=== PATIENT | male | born 1985 | race American Indian/Alaskan Native ===

== ENCOUNTER 2019-09-11 19:14 | Emergency (ER) | payer MEDICAID ==
[2019-09-11 19:30] VITALS: BP 132/82
[2019-09-11 19:54] LABS: Hematocrit 29.9 % (35.5-45.6); Hemoglobin 9.5 gm/dl (11.8-15.2); Mean Corpuscular HGB Conc 32 % (32-34); Mean Corpuscular Volume 77 fl (84-94); Platelet Count 290 K/mm3 (140-440); Red Blood Count 3.88 M/mm3 (3.65-5.03)
[2019-09-11 20:00] LABS: Red Cell Distribution Width 23.1 % (13.2-15.2)
[2019-09-11 20:18] LABS: Alanine Aminotransferase 14 units/L (7-56); Albumin 4.4 g/dL (3.9-5); BUN/Creatinine Ratio 10; Blood Urea Nitrogen 10 mg/dL (9-20); Hemolysis Index 10
--- NOTE | 2019-09-11 20:22 | Emergency Department Report ---
<FRANCI REARDON CRYSTALOBED - Last Filed: 09/11/19 20:56> ED Abdominal Pain HPI - General Chief Complaint: Abdominal Pain Stated Complaint: POSS FOOD POISON Time Seen by Provider: 09/11/19 19:49 Source: patient Mode of arrival: Ambulatory Limitations: No Limitations - History of Present Illness Initial Comments: This is a 34-year-old -[place] male who presents to the emergency room with nausea, vomiting, and epigastric pain since 1529 today. Patient on its bedside and states patient started vomiting when he arrived home from school. She think he possibly ate something that upset his stomach. She is given Pepto-Bismol. Denies diarrhea, fever, chills, chest pain, shortness of breath, dizziness, or headache. -: This afternoon Time: 15:30 Severity scale (0 -10): 0 Consistency: intermittent Improves With: nothing Worsens With: eating Context: possible food poisoning Associated Symptoms: denies other symptoms - Related Data Previous Rx's Medication Instructions Recorded Last Taken Type Ibuprofen [Motrin] 600 mg PO Q8H PRN #60 tablet 04/18/15 Unknown Rx Polyethylene Glycol 3350 [Miralax 17 gm PO DAILY #1 bottle 04/18/15 Unknown Rx 3350] raNITIdine HCl [Zantac 150 MG TAB] 150 mg PO QDAY #30 tablet 10/13/18 Unknown Rx Ondansetron [Zofran Odt] 4 mg PO Q8HR PRN #15 tab.rapdis 09/11/19 Unknown Rx Allergies Allergy/AdvReac Type Severity Reaction Status Date / Time No Known Allergies Allergy Verified 10/13/18 15:36 ED Review of Systems Constitutional: denies: chills, fever Respiratory: denies: cough, shortness of breath, wheezing Cardiovascular: denies: chest pain, palpitations Gastrointestinal: nausea, vomiting. denies: abdominal pain, diarrhea Genitourinary: denies: urgency, dysuria Skin: denies: rash, lesions Neurological: denies: headache, weakness, paresthesias Psychiatric: denies: anxiety, depression ED Past Medical Hx - Past Medical History Previous Medical History?: Yes Additional medical history: heart murmur/ MR - Surgical History Past Surgical History?: No - Social History Smoking Status: Never Smoker Substance Use Type: None - Medications Home Medications: Home Medications Medication Instructions Recorded Confirmed Last Taken Type Ibuprofen [Motrin] 600 mg PO Q8H PRN #60 tablet 04/18/15 Unknown Rx Polyethylene Glycol 3350 [Miralax 17 gm PO DAILY #1 bottle 04/18/15 Unknown Rx 3350] raNITIdine HCl [Zantac 150 MG TAB] 150 mg PO QDAY #30 tablet 10/13/18 Unknown Rx Ondansetron [Zofran Odt] 4 mg PO Q8HR PRN #15 tab.rapdis 09/11/19 Unknown Rx ED Physical Exam - General Limitations: No Limitations General appearance: alert, in no apparent distress - Respiratory Respiratory exam: Present: normal lung sounds bilaterally. Absent: respiratory distress - Cardiovascular Cardiovascular Exam: Present: regular rate, normal rhythm. Absent: systolic murmur, diastolic murmur, rubs, gallop - GI/Abdominal GI/Abdominal exam: Present: soft, normal bowel sounds. Absent: distended, tenderness, guarding, rebound, rigid - Neurological Exam Neurological exam: Present: alert, oriented X3 - Psychiatric Psychiatric exam: Present: normal affect, normal mood - Skin Skin exam: Present: warm, dry, intact, normal color. Absent: rash ED Medical Decision Making - Lab Data Result diagrams: 09/11/19 19:34 09/11/19 19:34 Lab Results 09/11/19 09/11/19 09/11/19 Range/Units 19:34 19:34 19:58 WBC 8.4 (4.5-11.0) K/mm3 RBC 3.88 (3.65-5.03) M/mm3 Hgb 9.5 L (11.8-15.2) gm/dl Hct 29.9 L (35.5-45.6) % MCV 77 L (84-94) fl MCH 25 L (28-32) pg MCHC 32 (32-34) % RDW 23.1 H (13.2-15.2) % Plt Count 290 (140-440) K/mm3 Sodium 139 (137-145) mmol/L Potassium 3.9 (3.6-5.0) mmol/L Chloride 103.4 (98-107) mmol/L Carbon Dioxide 21 L (22-30) mmol/L Anion Gap 19 mmol/L BUN 10 (9-20) mg/dL Creatinine 1.0 (0.8-1.5) mg/dL Estimated GFR > 60 ml/min BUN/Creatinine Ratio 10 % Glucose 96 (75-100) mg/dL Calcium 10.0 (8.4-10.2) mg/dL Total Bilirubin 0.20 (0.1-1.2) mg/dL AST 22 (5-40) units/L ALT 14 (7-56) units/L Alkaline Phosphatase 50 (35-129) units/L Total Protein 8.0 (6.3-8.2) g/dL Albumin 4.4 (3.9-5) g/dL Albumin/Globulin Ratio 1.2 % Urine Color Yellow (Yellow) Urine Turbidity Cloudy (Clear) Urine pH 7.0 (5.0-7.0) Ur Specific [place] 1.020 (1.003-1.030) Urine Protein <15 mg/dl (Negative) mg/dL Urine Glucose (UA) Neg (Negative) mg/dL Urine Ketones Neg (Negative) mg/dL Urine Blood Neg (Negative) Urine Nitrite Neg (Negative) Urine Bilirubin Neg (Negative) Urine Urobilinogen < 2.0 (<2.0) mg/dL Ur Leukocyte Esterase Neg (Negative) Urine WBC (Auto) 2.0 (0.0-6.0) /HPF Urine RBC (Auto) 1.0 (0.0-6.0) /HPF Urine Mucus 2+ /HPF - Medical Decision Making Patient is stable and was examined by me. Obtained labs. H/H slightly low with signs of anemia which is normal for patient on prior visits. All other labs unremarkable. Given normal saline and zofran IV once in ER. Plan to start zofran for gastritis. Discussed plan with patient and pebble mill operator who both agreed to ER plan. No further questions noted by the patient. Discharged home in stable condition. Follow up with PCP in 2-3 days. ED Disposition Clinical Impression: Gastroenteritis Disposition: DC-01 TO HOME OR SELFCARE Is pt being admited?: No Condition: Stable Instructions: Gastroenteritis (ED), Acute Nausea and Vomiting (ED) Additional Instructions: Frequent hand washing is important to reduce spread. Prompt disinfection of contaminated surfaces with household chlorine bleach- based automobile taillight assembler and washing of soiled clothing and bedding is advised. If food or water is thought to be contaminated, it should be avoided. Increase fluid intake. Drinks high in sugars such as carbonated soft drinks, fruit juice, and highly sugared liquids should be avoided. Prescriptions: Ondansetron [Zofran Odt] 4 mg PO Q8HR PRN #15 tab.rapdis PRN Reason: Nausea And Vomiting Referrals: [facility] [Outside] - 3-[address] [facility] [Outside] - 3-5 Days [facility] [Provider Group] - 3-5 Days Forms: Accompanied Note, Work/School Release Form(ED) Time of Disposition: 21:01 <MAVIS GRECO - Last Filed: 09/12/19 03:25> ED Review of Systems ROS: Stated complaint: POSS FOOD POISON Other details as noted in HPI ED Course Vital Signs 09/11/19 19:29 Temperature 99.0 F Pulse Rate 93 H Respiratory 20 Rate Blood Pressure 132/82 O2 Sat by Pulse 100 Oximetry ED Medical Decision Making - Lab Data Result diagrams: 09/11/19 19:34 09/11/19 19:34 - Medical Decision Making Attestation: Available for consultation Critical care attestation.: If time is entered above; I have spent that time in minutes in the direct care of this critically ill patient, excluding procedure time. ED Disposition Is pt being admited?: No
[2019-09-11] MEDS ORDERED: ZOFRAN IV ONE (20:25)
[2019-09-11] MEDS ORDERED: NACL 0.9% 1000 ML 1,000 ML IV ONE (20:25)
[2019-09-11 20:45] LABS: Bilirubin,Urine NEG (Negative); Blood,Urine NEG (Negative); Color,Urine Yellow (Yellow); Mucus,Urine 2+ /HPF; Protein,Urine <15 mg/dL mg/dL (Negative); Urobilinogen,Urine < 2.0 mg/dL (<2.0)
[2019-09-11 21:22] LABS: Basophils % (Manual) 0 % (0.0-1.8); Eosinophils % (Manual) 0 % (0.0-4.3); Total Cells Counted 100
[2019-09-11 21:23] LABS: Anisocytosis 1+; Hypochromasia 1+; Ovalocytes 1+; Platelet Estimate Consistent w Auto
== END 2019-09-11 22:08 | disposition home or self-care (01) ==
LOC: ED 19:14
DX: K52.9 Noninfective gastroenteritis and colitis, unspecified (principal)
CPT/HCPCS: 36415; 80053; 81001; 85007; 85025; 96361; 96374; 99283; J2405; J7030

== ENCOUNTER 2021-05-11 15:41 | Emergency (ER) | payer MEDICAID ==
--- NOTE | 2021-05-11 16:44 | XRay Report ---
CHEST 2 VIEWS INDICATION: shortness of breath. COMPARISON: FINDINGS: Support devices: None. Heart: Within normal limits. Lungs: No acute air space or interstitial disease. Pleura: No significant pleural effusion. No pneumothorax. Additional findings: None. IMPRESSION: 1. No acute findings. Signer Name: Alonso Nye MD Signed: 05/11/2021 4:39 PM Workstation Name: [id number]
--- NOTE | 2021-05-11 17:04 | Emergency Department Report ---
ED General Adult HPI - General Chief complaint: Dyspnea/Respdistress Stated complaint: DIFFICULTY BREATHING Source: patient Mode of arrival: Ambulatory Limitations: No Limitations - Related Data Previous Rx's Medication Instructions Recorded Last Taken Type Ibuprofen [Motrin] 600 mg PO Q8H PRN #60 tablet 04/18/15 Unknown Rx polyethylene glycoL 3350 [Miralax 17 gm PO DAILY #1 bottle 04/18/15 Unknown Rx 3350] raNITIdine HCl [Zantac 150 MG TAB] 150 mg PO QDAY #30 tablet 10/13/18 Unknown Rx Ondansetron [Zofran Odt] 4 mg PO Q8HR PRN #15 tab.rapdis 09/11/19 Unknown Rx Allergies Allergy/AdvReac Type Severity Reaction Status Date / Time No Known Allergies Allergy Verified 10/13/18 15:36 ED Review of Systems ROS: Stated complaint: DIFFICULTY BREATHING Other details as noted in HPI ED Past Medical Hx - Past Medical History Previous Medical History?: Yes Additional medical history: heart murmur/ MR. Autism - Social History Smoking Status: Never Smoker - Medications Home Medications: Home Medications Medication Instructions Recorded Confirmed Last Taken Type Ibuprofen [Motrin] 600 mg PO Q8H PRN #60 tablet 04/18/15 Unknown Rx polyethylene glycoL 3350 [Miralax 17 gm PO DAILY #1 bottle 04/18/15 Unknown Rx 3350] raNITIdine HCl [Zantac 150 MG TAB] 150 mg PO QDAY #30 tablet 10/13/18 Unknown Rx Ondansetron [Zofran Odt] 4 mg PO Q8HR PRN #15 tab.rapdis 09/11/19 Unknown Rx ED Physical Exam - General Limitations: No Limitations ED Course Vital Signs 05/11/21 15:49 Temperature 98.3 F Pulse Rate 87 Respiratory 20 Rate Blood Pressure 133/75 O2 Sat by Pulse 100 Oximetry ED Medical Decision Making - Radiology Data Radiology results: report reviewed CHEST 2 VIEWS INDICATION: shortness of breath. COMPARISON: FINDINGS: Support devices: None. Heart: Within normal limits. Lungs: No acute air space or interstitial disease. Pleura: No significant pleural effusion. No pneumothorax. Additional findings: None. IMPRESSION: 1. No acute findings. Critical care attestation.: If time is entered above; I have spent that time in minutes in the direct care of this critically ill patient, excluding procedure time. ED Disposition Condition: Stable
[2021-05-11 17:18] LABS: Hematocrit 21.6 % (35.5-45.6); Hemoglobin 6.3 gm/dl (11.8-15.2); Mean Corpuscular HGB Conc 29 % (32-34); Platelet Count 336 K/mm3 (140-440); Red Blood Count 3.47 M/mm3 (3.65-5.03)
[2021-05-11 17:22] LABS: Mean Corpuscular Volume 62 fl (84-94); Red Cell Distribution Width 24.2 % (13.2-15.2)
[2021-05-11 18:01] LABS: Total Cells Counted 100
[2021-05-11 18:02] LABS: Anisocytosis 1+; Hypochromasia 1+; Ovalocytes 1+
--- NOTE | 2021-05-11 22:52 | Emergency Department Report ---
ED General Adult HPI - General Chief complaint: Medical Clearance Stated complaint: Medical clearance PUI?: No Time Seen by Provider: 05/11/21 17:04 Source: patient, family, RN notes reviewed, old records reviewed Mode of arrival: Ambulatory Limitations: Other (Patient is developmentally delayed. History obtained from patient and family member) - History of Present Illness Initial comments: This is a 35-year-old gentleman. He has a history of microcytic anemia, had a negative colonoscopy last year, and developmental delay. He is brought to the hospital by his mother for evaluation of resolved outdoor fatigue. She reports the patient was outside for school earlier on today, and the extreme heat, and appeared to be somewhat tired. This is now resolved. She denies all complaints otherwise at this time. She specifically denies headache, neck pain, chest pain, abdominal pain, shortness of breath, hematemesis, bright red blood per rectum. She reports that her son appears to be at his baseline, and would like to be discharged. She reports that the patient has a known history of chronic microcytic anemia, and has previously been maintained on iron sulfate, but this was discontinued by the primary care doctor a while back. He has not followed up with an outpatient systems development consultant for evaluation of iron infusions. She would like to be restarted on iron and would like referrals for outpatient hematology for consideration of iron infusions. She also reports that the patient appears to be at his baseline. The patient himself denies all complaints at this time. He tells me that he feels "okay." He denies physical pain, vomiting blood and defecation of blood. -: Sudden, This afternoon Consistency: now resolved Improves with: none Worsens with: none - Related Data Previous Rx's Medication Instructions Recorded Last Taken Type Ferrous Sulfate [Ferrous Sulfate 300 mg PO TID #1 bottle 05/11/21 Unknown Rx Oral Liq 300 Mg/5 Ml] Allergies Allergy/AdvReac Type Severity Reaction Status Date / Time No Known Allergies Allergy Verified 10/13/18 15:36 ED Review of Systems ROS: Stated complaint: DIFFICULTY BREATHING Other details as noted in HPI Comment: All other systems reviewed and negative ED Past Medical Hx - Past Medical History Previous Medical History?: Yes Additional medical history: heart murmur/ MR. Autism - Social History Smoking Status: Never Smoker - Medications Home Medications: Home Medications Medication Instructions Recorded Confirmed Last Taken Type Ferrous Sulfate [Ferrous Sulfate 300 mg PO TID #1 bottle 05/11/21 Unknown Rx Oral Liq 300 Mg/5 Ml] ED Physical Exam - General Limitations: Other (Developmental delay) General appearance: alert, in no apparent distress - Head Head exam: Present: atraumatic, normocephalic - Eye Eye exam: Present: normal appearance, EOMI, other (Bilateral conjunctiva are pale). Absent: nystagmus - ENT ENT exam: Present: normal exam, normal orophraynx, mucous membranes moist, normal external ear exam - Neck Neck exam: Present: normal inspection, full ROM. Absent: tenderness, meningismus - Respiratory Respiratory exam: Present: normal lung sounds bilaterally. Absent: respiratory distress, wheezes, rales, rhonchi, stridor, decreased breath sounds - Cardiovascular Cardiovascular Exam: Present: regular rate, normal rhythm, normal heart sounds. Absent: bradycardia, tachycardia, irregular rhythm, systolic murmur, diastolic murmur, rubs, gallop - GI/Abdominal GI/Abdominal exam: Present: soft. Absent: distended, tenderness, guarding, rebound, rigid, pulsatile mass - Rectal Rectal exam: Present: normal inspection, normal rectal tone, heme (-) stool, other (Chaperoned by Ernestine Mancera). Absent: heme (+) stool, black stool, bloody stool, fecal impaction - Extremities Exam Extremities exam: Present: normal inspection, full ROM, other (2+ pulses noted in the bilateral upper and lower extremities. There is no palpable cord. negative Homans sign. Muscular compartments are soft. The pelvis is stable.). Absent: pedal edema, calf tenderness - Back Exam Back exam: Present: normal inspection, full ROM. Absent: tenderness, CVA tenderness (R), CVA tenderness (L), paraspinal tenderness, vertebral tenderness - Neurological Exam Neurological exam: Present: alert, normal gait, other (No facial droop. Tongue midline. Extraocular movements intact bilaterally. Facial sensation intact to light touch in V1, V2, V3 distribution bilaterally. 5 and a 5 strength in 4 extremities. Sensation intact to light touch in 4 extremities.). Absent: motor sensory deficit - Psychiatric Psychiatric exam: Present: normal affect, normal mood - Skin Skin exam: Present: warm, dry, intact, normal color. Absent: rash ED Course Vital Signs 05/11/21 15:49 Temperature 98.3 F Pulse Rate 87 Respiratory 20 Rate Blood Pressure 133/75 O2 Sat by Pulse 100 Oximetry ED Medical Decision Making - Lab Data Result diagrams: 05/11/21 16:31 Vital Signs 05/11/21 15:49 Temperature 98.3 F Pulse Rate 87 Respiratory 20 Rate Blood Pressure 133/75 O2 Sat by Pulse 100 Oximetry Lab Results 05/11/21 Range/Units 16:31 WBC 8.3 (4.5-11.0) K/mm3 RBC 3.47 L (3.65-5.03) M/mm3 Hgb 6.3 L (11.8-15.2) gm/dl Hct 21.6 L (35.5-45.6) % MCV 62 L (84-94) fl MCH 18 L (28-32) pg MCHC 29 L (32-34) % RDW 24.2 H (13.2-15.2) % Plt Count 336 (140-440) K/mm3 Lymph % (Auto) Project Management Professional [place] % (Auto) Project Management Professional Eos % (Auto) Project Management Professional Baso % (Auto) Project Management Professional Lymph # (Auto) Project Management Professional [place] # (Auto) Project Management Professional Eos # (Auto) Project Management Professional Baso # (Auto) Project Management Professional Add Manual Diff Complete Total Counted 100 Seg Neutrophils % Project Management Professional Seg Neuts % (Manual) 78.0 H (40.0-70.0) % Lymphocytes % (Manual) 15.0 (13.4-35.0) % Monocytes % (Manual) 7.0 (0.0-7.3) % Nucleated RBC % Not Reportable Seg Neutrophils # Project Management Professional Seg Neutrophils # Man 6.5 (1.8-7.7) K/mm3 Band Neutrophils # 0.0 K/mm3 Lymphocytes # (Manual) 1.2 (1.2-5.4) K/mm3 Abs React Lymphs (Man) 0.0 K/mm3 Monocytes # (Manual) 0.6 (0.0-0.8) K/mm3 Eosinophils # (Manual) 0.0 (0.0-0.4) K/mm3 Basophils # (Manual) 0.0 (0.0-0.1) K/mm3 Metamyelocytes # 0.0 K/mm3 Myelocytes # 0.0 K/mm3 Promyelocytes # 0.0 K/mm3 Blast Cells # 0.0 K/mm3 WBC Morphology Not Reportable Hypersegmented Neuts Not Reportable Hyposegmented Neuts Not Reportable Hypogranular Neuts Not Reportable Smudge Cells Not Reportable Toxic Granulation Not Reportable Toxic Vacuolation Not Reportable Dohle Bodies Not Reportable Pelger-Huet Anomaly Not Reportable Shannan Rods Not Reportable Platelet Estimate Not Reportable Clumped Platelets Not Reportable Plt Clumps, EDTA Not Reportable Large Platelets Not Reportable Giant Platelets Not Reportable Platelet Satelliting Not Reportable Plt Morphology Comment Not Reportable RBC Morphology Not Reportable Dimorphic RBCs Not Reportable Polychromasia Not Reportable Hypochromasia 1+ Poikilocytosis Not Reportable Anisocytosis 1+ Microcytosis Few Macrocytosis Not Reportable Spherocytes Not Reportable Pappenheimer Bodies Not Reportable Sickle Cells Not Reportable Target Cells Not Reportable Tear Drop Cells Not Reportable Ovalocytes 1+ Helmet Cells Not Reportable White-Zena Bodies Not Reportable [place] Rings Not Reportable Anton Cells Not Reportable Bite Cells Not Reportable Crenated Cell Not Reportable Elliptocytes Not Reportable Acanthocytes (Spur) Not Reportable Rouleaux Not Reportable Hemoglobin C Crystals Not Reportable Schistocytes Not Reportable Malaria parasites Not Reportable [place] Bodies Not Reportable Hem Pathologist Commnt No - Medical Decision Making Differential diagnosis, including the not limited to: Chronic microcytic anemia, iron deficiency anemia, general medical exam, heat exhaustion, now resolved Assessment and plan: 35-year-old gentleman, who was afebrile, with reassuring vital signs, who is no complaints at this time, who is at his baseline, corroborated by family member. He has a chronic microcytic presumed iron deficient anemia, which is asymptomatic at this time, unchanged from laboratory values approximately 1 year ago, and not acutely symptomatic. I did offer the patient and his mother of packed red blood cell transfusion, although it is my opinion that it is not emergently necessary. Mother prefers to start iron sulfate supplementation, and follow-up as an outpatient. Through shared decision-making, we will therefore reinitiate oral iron supplementation, and referred to outpatient primary care/GI/hematology. The patient has no complaints at this time, vital signs are unremarkable, and patient family member deny hematemesis, bright red blood per rectum, urinary symptoms and Covid symptomatology. This patient was observed in this emergency room for 8 hours without clinical decompensation, and is medically suitable to be discharged with oral iron supplementation, and outpatient follow-up. Return precautions are reviewed. Critical care attestation.: If time is entered above; I have spent that time in minutes in the direct care of this critically ill patient, excluding procedure time. ED Disposition Clinical Impression: Microcytic anemia Disposition: DC-01 TO HOME OR SELFCARE Is pt being admited?: No Does the pt Need Aspirin: No Condition: Good Instructions: Preventing Iron Deficiency Anemia, Adult, Iron-Rich Diet Additional Instructions: Please take the oral iron sulfate supplementation as directed. This medication may cause black stool, cramping and constipation. Please make certain to eat plenty of green leafy vegetables, and lean protein, such as grilled chicken, fish, and lean red meat. We recommend follow-up with a primary care doctor, or systems development consultant within the next month. For the patient's convenience, we have listed a number of local systems development consultant that she may follow-up with for outpatient iron infusions. Dr. Ross, Dr. Parada, Dr. Zavala are local hematology specialists. Follow-up with your primary care doctor and/or gas pumping station supervisor within the next month. Please return to the emergency room right away with new pain, worsened pain, migration of pain, projectile vomiting, change in mental status, confusion, vomiting blood, defecating blood, or any new, worsened or different symptoms not present on the initial emergency room evaluation. Please drink 4 to 5 cups of water per day indefinitely, and please exercise caution when being outside in the extreme heat. Prescriptions: Ferrous Sulfate [Ferrous Sulfate Oral Liq 300 Mg/5 Ml] 300 mg PO TID #1 bottle Referrals: [facility] [Provider Group] - 3-5 Days [facility] [Provider Group] - 3-5 Days JULIETTE ZAVALA DO [Staff Physician] - 3-5 Days HARSHAL ROSS MD [Staff Physician] - 3-5 Days AFSHAN PARADA MD [Staff Physician] - 3-5 Days
[2021-05-12 00:11] VITALS: BP 117/54
== END 2021-05-12 00:10 | disposition home or self-care (01) ==
LOC: ED 15:41
DX: D50.9 Iron deficiency anemia, unspecified (principal); Z79.899 Other long term (current) drug therapy
CPT/HCPCS: 36415; 71046; 85007; 85025

== ENCOUNTER 2022-03-09 17:25 | Emergency (ER) | payer MEDICAID ==
[2022-03-09 17:40] VITALS: BP 128/73
== END 2022-03-09 19:08 | disposition left against medical advice (07) ==
LOC: ED 17:25
DX: D72.819 Decreased white blood cell count, unspecified (principal); Z53.21 Procedure and treatment not carried out due to patient leaving prior to being seen by health care provider

== ENCOUNTER 2022-07-01 03:36 | Emergency (ER) | payer MEDICAID ==
[2022-07-01 03:41] VITALS: BP 139/72
--- NOTE | 2022-07-02 14:40 | Electrocardiograph Report ---
[facility] Test Date: 2022-07-01 Test Time: 03:45:39 Pat Name: OUSMANE HERRMANN Department: Room: Gender: M Monorail Operator: ERNESTINA : 1985 Requested By: ED DOC Order Number: [id number] Reading MD: Oskar Kumar Measurements Intervals [place] Rate: 82 P: 64 DC: 142 QRS: 86 QRSD: 79 T: 43 QT: 354 QTc: 414 Interpretive Statements Sinus rhythm Consider left ventricular hypertrophy No previous ECG available for comparison Electronically Signed On 07-02-2022 14:40:20 EDT by Oskar Kumar
== END 2022-07-02 09:50 | disposition left against medical advice (07) ==
LOC: ED 03:36
DX: R12 Heartburn (principal); Z53.21 Procedure and treatment not carried out due to patient leaving prior to being seen by health care provider
CPT/HCPCS: 93005